=== PATIENT | male | born 2000 | race Caucasian/White ===

== ENCOUNTER 2021-01-18 08:47 | Emergency (ER) | payer BC ==
[~2021-01-18] VITALS: Ht 188 cm; Wt 63.6 kg
[2021-01-18 09:40] VITALS: BP 120/49
[2021-01-18] MEDS ORDERED: ONDA4TAB6 PO (09:47)
== END 2021-01-18 10:17 | disposition home or self-care (01) ==
LOC: ER 08:48
DX: U07.1 COVID-19 (principal); R11.2 Nausea with vomiting, unspecified; R06.02 Shortness of breath; R19.7 Diarrhea, unspecified; R25.2 Cramp and spasm; Z88.8 Allergy status to other drugs, medicaments and biological substances; Z79.899 Other long term (current) drug therapy
CPT/HCPCS: 99283